=== PATIENT | male | born 1945 | race Caucasian/White ===

== ENCOUNTER 2022-11-11 08:01 | Outpatient (CLI) | payer MEDICARE, SELFPAY ==
[2022-11-11 20:11] LABS: Basophils Absolute Auto 0.1 K/mm3 (0.0-0.1); Basophils Percent Auto 1.1 % (0.2-1.2); Eosinophils Absolute Auto 0.2 K/mm3 (0-0.3); Eosinophils Percent Auto 2.7 % (0-4.4); Hematocrit 51.8 % (42.0-52.0); Hemoglobin 16.1 g/dL (14.0-18.0); Immature Granulocyte Absolute 0.05 K/mm3 (0.00-0.031); Immature Granulocyte Percent A 0.7 % (0-0.5); Lymphocytes Absolute Auto 1.32 K/mm3 (0.9-3.2); Lymphocytes Percent Auto 18.8 % (18.3-44.2); Mean Corpuscular HGB Conc 31.1 g/dl (32-36); Mean Corpuscular Hemoglobin 28.5 pg (26-34); Mean Corpuscular Volume 91.8 fl (80-100); Mean Platelet Volume 11.4 fl (7.4-10.4); Monocytes Absolute Auto 0.7 K/mm3 (0.1-0.6); Monocytes Percent Auto 9.2 % (2.6-8.5); Neutrophils Absolute Auto 4.7 K/mm3 (1.3-6.7); Neutrophils Percent Auto 67.5 % (45.5-73.1); Platelet Count Result 243 k/mm3 (150-375); Red Blood Count 5.64 M/mm3 (4.6-6.20); Red Cell Distribution Width 14.6 % (11.5-14.5)
[2022-11-11 20:47] LABS: Alanine Aminotransferase 16 U/L (6-50); Albumin Level 4.2 g/dL (3.5-5.1); Alkaline Phosphatase 111 U/L (38-126); Anion Gap 6 mmol/L (8-16); Aspartate Amino Transferase 30 U/L (17-59); Bilirubin,Total 0.7 mg/dL (0.2-1.3); Blood Urea Nitrogen 26 mg/dL (9-20); Calcium 9.9 mg/dL (8.4-10.2); Carbon Dioxide 30 mmol/L (22-30); Chloride 105 mmol/L (98-107); Cholesterol 173 mg/dL (0-200); Estimated Glomerular Filt Rate 29; Glucose 86 mg/dL (65-110); HDL Direct 30 mg/dL; Potassium 5.4 mmol/L (3.4-5.0); Sodium 141 mmol/L (137-145); Triglycerides 184 mg/dL (<150)
[2022-11-11 21:01] LABS: LDL Cholesterol Direct 87 mg/dL; Parathyroid Intact 217.1 pg/mL (7.5-53.5)
[2022-11-11 21:15] LABS: Prostate Specific Antigen 1.5 ng/mL (< OR = 4.0)
[2022-11-11 21:21] LABS: Creatinine Urine 67.2 mg/dL; Total Protein Urine Random 163 mg/dL; Ur Ttl Prot Creatinine Ratio 2.43 mg/mg (0-0.20)
[2022-11-11 22:16] LABS: Vitamin D 25 Hydroxy 44.5 ng/mL
== END 2022-11-11 08:02 | disposition home or self-care (01) ==
LOC: ANHGOSHLAB 08:03
PROVIDERS: PCP Internal Medicine; Referring Provider Internal Medicine Nephrology; Visit Provider Nurse Practitioner
DX: I12.9 Hypertensive chronic kidney disease with stage 1 through stage 4 chronic kidney disease, or unspecified chronic kidney disease (principal); N18.4 Chronic kidney disease, stage 4 (severe); Z12.5 Encounter for screening for malignant neoplasm of prostate
CPT/HCPCS: 36415; 80053; 80061; 82306; 82570; 83970; 84153; 84156; 85025; G0103

== ENCOUNTER 2023-05-14 08:22 | Outpatient (CLI) | payer MEDICARE, SELFPAY ==
[2023-05-14 09:33] LABS: Basophils Absolute Auto 0.1 K/mm3 (0.0-0.1); Basophils Percent Auto 0.8 % (0.2-1.2); Eosinophils Absolute Auto 0.2 K/mm3 (0-0.3); Eosinophils Percent Auto 2.3 % (0-4.4); Hematocrit 47.2 % (42.0-52.0); Hemoglobin 15.1 g/dL (14.0-18.0); Immature Granulocyte Absolute 0.04 K/mm3 (0.00-0.031); Immature Granulocyte Percent A 0.5 % (0-0.5); Lymphocytes Absolute Auto 1.06 K/mm3 (0.9-3.2); Lymphocytes Percent Auto 14.4 % (18.3-44.2); Mean Corpuscular Hemoglobin 29.3 pg (26-34); Mean Corpuscular Volume 91.7 fl (80-100); Mean Platelet Volume 10.9 fl (7.4-10.4); Monocytes Absolute Auto 0.6 K/mm3 (0.1-0.6); Monocytes Percent Auto 8.7 % (2.6-8.5); Neutrophils Absolute Auto 5.4 K/mm3 (1.3-6.7); Neutrophils Percent Auto 73.3 % (45.5-73.1); Platelet Count Result 202 k/mm3 (150-375); Red Blood Count 5.15 M/mm3 (4.6-6.20); Red Cell Distribution Width 14.2 % (11.5-14.5); White Blood Count 7.4 K/mm3 (4.5-10.0)
[2023-05-14 09:54] LABS: Alanine Aminotransferase 15 U/L (6-50); Albumin Level 4.2 g/dL (3.5-5.1); Alkaline Phosphatase 82 U/L (38-126); Anion Gap 4 mmol/L (8-16); Aspartate Amino Transferase 23 U/L (17-59); Bilirubin,Total 0.8 mg/dL (0.2-1.3); Blood Urea Nitrogen 25 mg/dL (9-20); Calcium 9.2 mg/dL (8.4-10.2); Carbon Dioxide 31 mmol/L (22-30); Chloride 106 mmol/L (98-107); Cholesterol 122 mg/dL (0-200); Estimated Glomerular Filt Rate 29; Glucose 102 mg/dL (65-110); HDL Direct 28 mg/dL; Phosphorus 3.1 mg/dL (2.5-4.5); Potassium 4.4 mmol/L (3.4-5.0); Sodium 141 mmol/L (137-145); Triglycerides 128 mg/dL (<150)
[2023-05-14 10:04] LABS: LDL Cholesterol Direct 62 mg/dL
[2023-05-14 10:10] LABS: Creatinine Urine 78.4 mg/dL
[2023-05-14 10:15] LABS: Prostate Specific Antigen 1.2 ng/mL (< OR = 4.0)
[2023-05-14 10:26] LABS: Parathyroid Intact 240.1 pg/mL (7.5-53.5)
[2023-05-14 10:32] LABS: Vitamin D 25 Hydroxy 50.6 ng/mL
[2023-05-14 12:16] LABS: Total Protein Urine Random 399 mg/dL; Ur Ttl Prot Creatinine Ratio 5.09 mg/mg (0-0.20)
== END 2023-05-14 08:23 | disposition home or self-care (01) ==
PROVIDERS: PCP Internal Medicine; Referring Provider Nurse Practitioner; Visit Provider Internal Medicine Nephrology
DX: I12.9 Hypertensive chronic kidney disease with stage 1 through stage 4 chronic kidney disease, or unspecified chronic kidney disease (principal); N18.4 Chronic kidney disease, stage 4 (severe); Z12.5 Encounter for screening for malignant neoplasm of prostate
CPT/HCPCS: 36415; 80053; 80061; 80069; 82306; 82570; 83970; 84153; 84156; 85025; G0103

== ENCOUNTER 2023-12-09 08:45 | Outpatient (CLI) | payer MEDICARE, SELFPAY ==
[2023-12-09 18:57] LABS: Hematocrit 49.8 % (42.0-52.0); Hemoglobin 15.1 g/dL (14.0-18.0); Mean Corpuscular HGB Conc 30.3 g/dl (32-36); Mean Corpuscular Hemoglobin 29.3 pg (26-34); Mean Corpuscular Volume 96.7 fl (80-100); Mean Platelet Volume 11.4 fl (7.4-10.4); Platelet Count Result 198 k/mm3 (150-375); Red Blood Count 5.15 M/mm3 (4.6-6.20); Red Cell Distribution Width 14.4 % (11.5-14.5); White Blood Count 7.9 K/mm3 (4.5-10.0)
[2023-12-09 19:11] LABS: Creatinine Urine 55.5 mg/dL; Total Protein Urine Random 100 mg/dL
[2023-12-09 19:23] LABS: Parathyroid Intact 261.9 pg/mL (7.5-53.5)
[2023-12-09 19:24] LABS: Albumin Level 4.2 g/dL (3.5-5.1); Anion Gap 7 mmol/L (8-16); Blood Urea Nitrogen 36 mg/dL (9-20); Calcium 9.6 mg/dL (8.4-10.2); Carbon Dioxide 29 mmol/L (22-30); Chloride 104 mmol/L (98-107); Estimated Glomerular Filt Rate 26; Glucose 105 mg/dL (65-110); Phosphorus 3.3 mg/dL (2.5-4.5); Potassium 4.7 mmol/L (3.4-5.0); Sodium 140 mmol/L (137-145)
== END 2023-12-09 08:46 | disposition home or self-care (01) ==
PROVIDERS: PCP Internal Medicine; Visit Provider Internal Medicine Nephrology
DX: N18.4 Chronic kidney disease, stage 4 (severe) (principal)
CPT/HCPCS: 36415; 80069; 82570; 83970; 84156; 85027

== ENCOUNTER 2024-06-22 08:35 | Outpatient (CLI) | payer MEDICARE, SELFPAY ==
[2024-06-22 15:38] LABS: Hematocrit 50.8 % (42.0-52.0); Hemoglobin 15.6 g/dL (14.0-18.0); Mean Corpuscular HGB Conc 30.7 g/dl (32-36); Mean Corpuscular Hemoglobin 30.1 pg (26-34); Mean Corpuscular Volume 97.9 fl (80-100); Mean Platelet Volume 11.6 fl (7.4-10.4); Platelet Count Result 225 k/mm3 (150-375); Red Blood Count 5.19 M/mm3 (4.6-6.20); White Blood Count 7.6 K/mm3 (4.5-10.0)
[2024-06-22 16:05] LABS: Albumin Level 4.5 g/dL (3.5-5.1); Anion Gap 11 mmol/L (4-12); Blood Urea Nitrogen 37 mg/dL (9-20); Calcium 10.2 mg/dL (8.4-10.2); Carbon Dioxide 28 mmol/L (22-30); Chloride 101 mmol/L (98-107); Estimated Glomerular Filt Rate 24; Glucose 93 mg/dL (65-110); Potassium 4.7 mmol/L (3.4-5.0); Sodium 140 mmol/L (137-145)
[2024-06-22 16:08] LABS: Creatinine Urine 69.5 mg/dL; Total Protein Urine Random 74 mg/dL; Ur Ttl Prot Creatinine Ratio 1.06 mg/mg (0-0.20)
[2024-06-22 16:09] LABS: Vitamin D 25 Hydroxy 41.8 ng/mL
[2024-06-22 16:10] LABS: Alanine Aminotransferase 16 U/L (6-50); Albumin Level 4.4 g/dL (3.5-5.1); Alkaline Phosphatase 74 U/L (38-126); Anion Gap 10 mmol/L (4-12); Aspartate Amino Transferase 48 U/L (17-59); Bilirubin,Total 0.7 mg/dL (0.2-1.3); Blood Urea Nitrogen 36 mg/dL (9-20); Carbon Dioxide 30 mmol/L (22-30); Chloride 100 mmol/L (98-107); Cholesterol 143 mg/dL (0-200); Estimated Glomerular Filt Rate 24; Glucose 88 mg/dL (65-110); HDL Direct 29 mg/dL; Sodium 140 mmol/L (137-145); Triglycerides 188 mg/dL (<150)
[2024-06-22 16:14] LABS: Parathyroid Intact 108.3 pg/mL (14.5-75.2)
[2024-06-22 16:27] LABS: LDL Cholesterol Direct 72 mg/dL
[2024-06-22 16:43] LABS: Prostate Specific Antigen 1.4 ng/mL (< OR = 4.0)
== END 2024-06-22 08:36 | disposition home or self-care (01) ==
PROVIDERS: Nurse Practitioner; PCP Internal Medicine; Visit Provider Internal Medicine Nephrology
DX: Z12.5 Encounter for screening for malignant neoplasm of prostate (principal); E78.5 Hyperlipidemia, unspecified; I12.9 Hypertensive chronic kidney disease with stage 1 through stage 4 chronic kidney disease, or unspecified chronic kidney disease; N18.4 Chronic kidney disease, stage 4 (severe); E21.1 Secondary hyperparathyroidism, not elsewhere classified
CPT/HCPCS: 36415; 80053; 80061; 80069; 82306; 82570; 83970; 84153; 84156; 85027; G0103

== ENCOUNTER 2025-01-16 09:13 | Outpatient (CLI) | payer MEDICARE, SELFPAY ==
--- OUTSIDE RECORDS SUMMARY | 2025-01-16 10:07 | XMS_ITS | Clinical Summary ---
Author Organization [facility] [email or web address] Address [address] [place] [address] Care Team Providers Care Ccie Name Role Phone Flores Amezquita MD Primary Care Provider Source Comments [facility] [email or web address],non-owned Affiliates and Associated Physician Practices is amultiple site organization consisting of ambulatory clinics and hospital sitesin [place], [place], [place] and [place]. This disclosure is being madepursuant to the Care Everywhere program and may not contain all information available regarding this patient. Last updated 18.[facility] [email or web address] Allergies No known active allergies Medications * Be aware that medications may not be up to date on this document. Alwaysverify current medications with the patient. Medication Sig Dispensed Refills Start Date End Date Status atenolol (TENORMIN) 25 MG tablet 25 mg by Per G Tube route once daily. Active temazepam (RESTORIL) 15 MG capsule 15 mg by Per G Tube route nightly as needed. Active chlorhexidine (PERIDEX) 0.12 % solution Swish and spit 15 mL 3 times daily. Active calcium-vitamin D (OYSTER-D) 250-125 MG-UNIT tablet 1 Tab by Per G Tube route 2 times daily with morning and evening meal. Active guaifenesin-dextrom ethorphan (DIABETIC TUSSIN DM) 10-100 MG/5ML syrup 5 mL by Per G Tube route every 8 hours as needed. Active diclofenac sodium (VOLTAREN) 1 % gel Apply to affected area 3 times daily. Active methylphenidate (RITALIN) 10 MG tablet 10 mg by Per G Tube route daily before breakfast. Active levETIRAcetam (KEPPRA) 100 MG/ML oral solution 500 mg by Per G Tube route 2 times daily. Active fentaNYL (DURAGESIC) 25 MCG/HR patch Apply 1 Patch to skin every 3 days. Active bacitracin-polymyxi n b (POLYSPORIN) [id number] UNIT/GM ointment Apply to affected area 3 times daily. Apply to left forearm tid after cleaning and apply dry dressing. Active senna (SENOKOT) 8.6 MG tablet 8.6 mg by Per G Tube route once daily. Active oxyCODONE (OXY-IR) 5 MG capsule 10 mg by Per G Tube route every 4 hours as needed. For pain rating 7-10. Active acetaminophen (TYLENOL) 500 MG tablet 500 mg by Per G Tube route every 4 hours as needed. Maximum allowable Acetaminophen amount = 4 Grams (4000 mg) / 24 hours. Active doxazosin (CARDURA) 1 MG tablet 1 mg by Per G Tube route at bedtime. Active bisACODYL (DULCOLAX) 10 MG suppository Insert 10 mg into the rectum once daily as needed. Active famotidine (PEPCID) 20 MG tablet 20 mg by Per G Tube route once daily. Active Docusate Sodium 50 MG/15ML LIQD 100 mg by Per G Tube route 2 times daily. Active LORazepam (ATIVAN) 0.5 MG tablet 1 Tab by Per NG tube route every 6 hours as needed for Anxiety. 0 0 10/20/2012 Active albuterol (PROVENTIL;VENTOLIN ) (5 MG/ML) 0.5% nebulizer solution Inhale 0.5 mL by mouth 4 times daily as needed for Shortness of Breath or Wheezing. 0 0 10/20/2012 Active ipratropium (ATROVENT) 0.02 % nebulizer solution Inhale 0.5 mg by mouth 4 times daily as needed for Shortness of Breath or Wheezing. 0 0 10/20/2012 Active warfarin (COUMADIN) MISC 10 mg daily at 5 PM. 0 0 10/20/2012 Active mirtazapine (REMERON) 15 MG tablet Take 1 Tab by mouth at bedtime. 0 0 10/20/2012 Active insulin regular human (HUMULIN R;NOVOLIN R) injection Inject 2-15 Units subcutaneously every 6 hours. 0 0 10/20/2012 Active warfarin (COUMADIN) 10 MG tablet Take 1 Tab by mouth every evening. 0 0 10/20/2012 Active Active Problems Problem Noted Date Diagnosed Date SOB (shortness of breath) 09/28/2012 Pulmonary embolism 09/28/2012 Antibiotic long-term use 09/25/2012 Fracture, scapula 09/22/2012 Respiratory failure, acute 09/22/2012 Immunizations Name Administration Dates Next Due INFLUENZA VACCINE 07/10/2012 Social History Tobacco Use Types Packs/Day Years Used Date Smoking Tobacco: Former Cigarettes Q uit: 1997 Alcohol Use Standard Drinks/Week Comments Not Asked 0 (1 standard drink = 0.6 oz pur e alcohol) Sex and Gender Information Value Date Recorded Sex Assigned at Not on file Gender Identity Not on file Sexual Orientation Not on file Last Filed Vital Signs Vital Sign Reading Time Taken Comments Blood Pressure 155/97 05/22/2013 2:03 PM CDT Pulse 98 05/22/2013 2:03 PM CDT Temperature 36.6 C (97.9 F) 01/16/2013 5:21 AM CDT Respiratory Rate 18 01/16/2013 5:21 AM CDT Oxygen Saturation 100% 01/16/2013 5:21 AM CDT Inhaled Oxygen Concentration 21% 10/18/2012 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 Weight 111.6 kg (246 lb) 05/22/2013 2:03 PM CDT Height 188 cm (6' 2 ) 01/12/2013 6:18 AM CDT Body Mass Index 31.58 01/12/2013 6:18 AM CDT Plan of Treatment Health Maintenance Due Date Last Done Comments HEPATITIS C SCREENING 09/25/1963 DTAP/TDAP/TD VACCINES (1 - Tdap) 1966 PNEUMOCOCCAL VACCINE 50+ (1 of 1 - PCV) 1997 ZOSTER VACCINE (1 of 2) 1997 Respiratory Syncytial Virus (RSV) Vaccine Pt: or over 60 yrs (1 - 1-dose 75+ series) 2022 COVID-19 VACCINE (1 - 2023-2 5 season) 2024 DEPRESSION SCREENING 10/10/2024 INFLUENZA VACCINE (Season Ended) 2025 07/10/20 12 HEPATITIS B VACCINE Aged Out No longe r eligible based on patient's age to complete this topic HIB VACCINE Aged Out No longer eligi ble based on patient's age to complete this topic HPV VACCINE Aged Out No longer eligi ble based on patient's age to complete this topic MENINGOCOCCAL (Group B) VACC INE SHARED DECISION-MAKING Aged Out No longer eligibl e based on patient's age to complete this topic MENINGOCOCCAL GROUPS A/C/Y/W VACCINE Aged Out No longer eligible b ased on patient's age to complete this topic Advance Directives Documents on File Type Date Recorded 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 Advance Directives and Livin g Will 05/22/2013 12:00 AM Advance Directives and Livin g Will 01/12/2013 12:00 AM * FULL RESUSCITATION (Latest Code Status on File) Date Activated Date Inactivated Comments 10/20/2012 6:32 PM 11/16/2012 3:26 PM * FULL RESUSCITATION Date Activated Date Inactivated Comments 10/20/2012 9:45 AM 10/20/2012 6:32 PM * FULL RESUSCITATION Date Activated Date Inactivated Comments 09/28/2012 6:13 PM 10/20/2012 9:45 AM * FULL RESUSCITATION Date Activated Date Inactivated Comments 09/22/2012 5:20 PM 09/28/2012 2:15 PM Care Teams Ccie Relationship Specialty [place] [address] [place] [address] PCP - General 10/19/12
[2025-01-16 11:25] LABS: Hematocrit 47.1 % (42.0-52.0); Hemoglobin 14.8 g/dL (14.0-18.0); Mean Corpuscular HGB Conc 31.4 g/dl (32-36); Mean Corpuscular Hemoglobin 30.2 pg (26-34); Mean Corpuscular Volume 96.1 fl (80-100); Mean Platelet Volume 11.1 fl (7.4-10.4); Platelet Count Result 257 k/mm3 (150-375); Red Cell Distribution Width 14.8 % (11.5-14.5); White Blood Count 9.6 K/mm3 (4.5-10.0)
[2025-01-16 13:47] LABS: Albumin Level 4.6 g/dL (3.5-5.1); Anion Gap 16 mmol/L (4-12); Blood Urea Nitrogen 49 mg/dL (9-20); Calcium 10.6 mg/dL (8.4-10.2); Carbon Dioxide 25 mmol/L (22-30); Chloride 101 mmol/L (98-107); Estimated Glomerular Filt Rate 19; Glucose 100 mg/dL (65-110); Phosphorus 3.8 mg/dL (2.5-4.5); Potassium 4.5 mmol/L (3.4-5.0); Sodium 142 mmol/L (137-145)
[2025-01-16 13:48] LABS: Parathyroid Intact 95.4 pg/mL (14.5-75.2)
== END 2025-01-16 09:14 | disposition home or self-care (01) ==
LOC: ANHGOSHLAB 09:15
PROVIDERS: PCP Internal Medicine; Visit Provider Internal Medicine Nephrology
DX: N18.4 Chronic kidney disease, stage 4 (severe) (principal); I12.9 Hypertensive chronic kidney disease with stage 1 through stage 4 chronic kidney disease, or unspecified chronic kidney disease
CPT/HCPCS: 36415; 80069; 83970; 85027

== ENCOUNTER 2025-02-13 09:50 | Outpatient (CLI) | payer MEDICARE, SELFPAY ==
--- OUTSIDE RECORDS SUMMARY | 2025-02-13 10:31 | XMS_ITS | Clinical Summary ---
Author Organization [facility] Address [address] [place] [address] Care Team Providers Care Card Grinder Helper Name Role Phone Flores Amezquita MD Primary Care Provider Source Comments [facility],non-owned Affiliates and Associated Physician Practices is amultiple site organization consisting of ambulatory clinics and hospital sitesin [place], [place], [place] and [place]. This disclosure is being madepursuant to the Care Everywhere program and may not contain all information available regarding this patient. Last updated 18.[facility] Allergies No known active allergies Medications * Be aware that medications may not be up to date on this document. Alwaysverify current medications with the patient. atenolol (TENORMIN) 25 MG tablet 25 mg [...] daily with morning and evening meal. Active guaifenesin-dex tromethorphan (DIABETIC TUSSIN DM) 10-100 MG/5ML syrup 5 [...] Patch to skin every 3 days. Active bacitracin-poly myxin b (POLYSPORIN) [id number] UNIT/GM ointment Apply to affected area 3 [...] hours as needed for Anxiety. 0 0 10/20/19 13 Active albuterol (PROVENTIL;VENT RACHEL) (5 MG/ML) 0.5% nebulizer solution Inhale 0.5 mL by mouth 4 times daily as needed for Shortness of Breath or Wheezing. 0 0 10/20/19 13 Active ipratropium (ATROVENT) 0.02 % nebulizer solution Inhale 0.5 mg by mouth 4 times daily as needed for Shortness of Breath or Wheezing. 0 0 10/20/19 13 Active warfarin (COUMADIN) MISC 10 mg daily at 5 PM. 0 0 10/20/19 13 Active mirtazapine (REMERON) 15 MG tablet Take 1 Tab by mouth at bedtime. 0 0 10/20/19 13 Active insulin regular human (HUMULIN R;NOVOLIN R) injection Inject 2-15 Units subcutaneously every 6 hours. 0 0 10/20/19 13 Active warfarin (COUMADIN) 10 MG tablet Take 1 Tab by mouth every evening. 0 0 10/20/19 13 Active Active Problems Problem Noted Date Diagnosed Date SOB (shortness of breath) 09/28/2012 Pulmonary embolism 09/28/2012 Antibiotic long-term use 09/25/2012 Fracture, scapula 09/22/2012 Respiratory failure, acute 09/22/2012 Immunizations Immunization Administration Dates Next Due INFLUENZA VACCINE 07/10/2012 Social History Tobacco Use Types Packs/Day Years Used Date Smoking Tobacco: Former Cigarettes Q uit: 1997 Alcohol Use Standard Drinks/Week Comments Not Asked 0 (1 standard drink = 0.6 oz pur e alcohol) Sex and Gender Information Value Date Recorded Sex Assigned at Not on file 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
--- OUTSIDE RECORDS SUMMARY | 2025-02-13 10:31 | XMS_ITS | Clinical Summary ---
Author Organization [facility] Address [address] [place] [address] Phone Care Team Providers Care Deputy Director Of Finance Name Role Phone SerenaclayPancho schaffer DO Primary Care Provider [phone] Allergies No known active allergies Medications amLODIPine (NORVASC) 10 MG tablet 1 daily 0 6 Active cholecalciferol (VITAMIN D-3) 2000 units capsule 5 Active metoprolol succinate XL (TOPROL-XL) 50 MG 24 hr tablet 1 daily 0 7 Active ferrous sulfate 325 (65 Fe) MG EC tablet bid 5 Active acetaminophen (TYLENOL) 500 MG tablet 500 mg by Intragastric route every 30 minutes as needed Active hydroCHLOROthia zide (HYDRODIURIL) 25 MG tablet Take 1 tablet (25 mg total) by mouth 1 (one) time each day 90 tablet 3 1 Active lisinopril (PRINIVIL) 20 MG tablet Take 1 tablet (20 mg total) by mouth 1 (one) time each day 90 tablet 3 2 Active pravastatin (PRAVACHOL) 40 MG tablet Take 1 tablet (40 mg total) by mouth 1 (one) time each day 90 tablet 3 2 Active Active Problems Problem Noted Date Diagnosed Date Essential (primary) hypertension 02/08/2018 Hyperlipidemia 02/08/2018 Chronic kidney disease, stage 4 (severe) 016 Pulmonary embolism 09/28/2012 Immunizations Immunization Administration Dates Next Due Influenza TIV (IM) 08/01/2021,07/10/2019 Influenza, Unspecified 08/04/2020,07/10/2012 Pneumococcal Conjugate 08/10/2018 Family History Medical History Relation Comments Malignant neoplastic disease Father Heart disease Mother Kidney disease Neg Hx Relation Status Comments Father Mother Social History Tobacco Use Types Packs/Day Years Used Date Smoking Tobacco: Former Smokeless Tobacco: Never Alcohol Use Standard Drinks/Week Comments Never 0 (1 standard drink = 0.6 oz pur e alcohol) AUDIT-C Answer Date Recorded Frequency of Alcohol Consumption Never 09/10/2019 Average Number of Drinks Not on file 019 Frequency of Binge Drinking Not on file 11/2018 Sex and Gender Information Value Date Recorded Sex Assigned at Not on file Legal Sex Male 8:58 AM MST Gender Identity Not on file Sexual Orientation Not on file Last Filed Vital Signs Vital Sign Reading Time Taken Comments Blood Pressure 108/60 05/12/2022 8:36 AM CDT Pulse 72 05/12/2022 8:36 AM CDT Temperature 36.5 C (97.7 F) 05/12/2022 8:36 AM CDT Respiratory Rate - - Oxygen Saturation - - Inhaled Oxygen Concentration - - Weight 101 kg (222 lb) 05/12/2022 8:36 AM CDT Height 188 cm (6' 2 ) 05/12/2022 8:36 AM CDT Body Mass Index 28.5 05/12/2022 8:36 AM CDT Plan of Treatment Health Maintenance Due Date Last Done Comments Pneumococcal PPSV23/PCV13 65 + Years / Low and Medium Risk (1 of 4 - PCV) 1997 Influenza Vaccine (Season Ended) 2025 08/01/2021, 08/04/2020, 07/10/2019, Additional history exists Insurance [facility] MEDIC[facility] Care Teams Deputy Director Of Finance Relationship Specialty Start Date End Date Pancho Taveras DO [address] [place] [address] PCP - General Internal Medicine 04/25/19
[2025-02-13 14:06] LABS: Anion Gap 10 mmol/L (4-12); Blood Urea Nitrogen 29 mg/dL (9-20); Calcium 10.2 mg/dL (8.4-10.2); Carbon Dioxide 25 mmol/L (22-30); Chloride 107 mmol/L (98-107); Estimated Glomerular Filt Rate 27; Glucose 96 mg/dL (65-110); Potassium 4.5 mmol/L (3.4-5.0); Sodium 142 mmol/L (137-145)
== END 2025-02-13 09:51 | disposition home or self-care (01) ==
LOC: ANHGOSHLAB 09:50
PROVIDERS: PCP Internal Medicine; Visit Provider Internal Medicine Nephrology
DX: N18.4 Chronic kidney disease, stage 4 (severe) (principal)
CPT/HCPCS: 36415; 80048

== ENCOUNTER 2025-07-18 08:16 | Outpatient (CLI) | payer MEDICARE, SELFPAY ==
[2025-07-18 11:15] LABS: Hematocrit 47.3 % (42.0-52.0); Hemoglobin 14.7 g/dL (14.0-18.0); Mean Corpuscular HGB Conc 31.1 g/dl (32-36); Mean Corpuscular Hemoglobin 28.5 pg (26-34); Mean Corpuscular Volume 91.7 fl (80-100); Platelet Count Result 213 k/mm3 (150-375); Red Blood Count 5.16 M/mm3 (4.6-6.20); White Blood Count 7.0 K/mm3 (4.5-10.0)
[2025-07-18 11:19] LABS: Cholesterol 162 mg/dL (0-200); HDL Direct 29 mg/dL; Triglycerides 182 mg/dL (<150)
[2025-07-18 11:24] LABS: Albumin Level 4.1 g/dL (3.5-5.1); Anion Gap 9 mmol/L (4-12); Blood Urea Nitrogen 33 mg/dL (9-20); Calcium 9.9 mg/dL (8.4-10.2); Carbon Dioxide 27 mmol/L (22-30); Chloride 105 mmol/L (98-107); Estimated Glomerular Filt Rate 30; Glucose 100 mg/dL (65-110); Potassium 4.8 mmol/L (3.4-5.0); Sodium 141 mmol/L (137-145)
[2025-07-18 11:31] LABS: Parathyroid Intact 114.2 pg/mL (14.5-75.2)
[2025-07-18 11:33] LABS: Total Protein Urine Random 93 mg/dL; Ur Ttl Prot Creatinine Ratio 1.92 mg/mg (0-0.20)
== END 2025-07-18 08:17 | disposition home or self-care (01) ==
PROVIDERS: Visit Provider Internal Medicine Nephrology
DX: E78.2 Mixed hyperlipidemia (principal)
CPT/HCPCS: 36415; 80061; 80069; 82570; 83970; 84156; 85027

== ENCOUNTER 2025-08-07 09:11 | Outpatient (CLI) | payer MEDICARE, SELFPAY ==
--- OUTSIDE RECORDS SUMMARY | 2025-08-07 09:58 | XMS_ITS | Clinical Summary ---
Author Organization [facility] Address [address] [place] [address] Care Team Providers Care Card Hanger Name Role Phone Flores Amezquita MD Primary Care Provider Source Comments [facility],non-owned Affiliates and Associated Physician Practices is amultiple site organization consisting of ambulatory clinics and hospital sitesin [place], [place], [place] and [place]. This disclosure is being madepursuant to the Care Everywhere program and may not contain all information available regarding this patient. Last updated 18.[facility] Allergies No known active allergies Medications * [...] 3 days. 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 Gender Identity Not on file Sexual Orientation [...] Oxygen Concentration 21% 10/18/2012 1 0:00 AM STEEPLE JACK Weight 111.6 kg (246 lb) 05/22/2013 2:03 PM CDT Height 188 cm (6' 2) 01/12/2013 6:18 AM CDT Body Mass Index 31.58 01/12/2013 6:18 AM CDT Plan of Treatment Health Maintenance Due Date Last Done Comments HEPATITIS C SCREENING 09/25/1963 DTAP/TDAP/TD VACCINES (1 - Tdap) 1966 PNEUMOCOCCAL VACCINE 50+ (1 of 1 - PCV) 1997 ZOSTER VACCINE (1 of 2) 1997 Respiratory Syncytial Virus (RSV) Vaccine Pt: or over 60 yrs (1 - 1-dose 75+ series) 2022 DEPRESSION SCREENING 10/10/2024 COVID-19 VACCINE (1 - 2023-2 5 season) 2025 INFLUENZA VACCINE (#1) 2025 07/10/2012 HEPATITIS B VACCINE Aged Out No longe [...] patient's age to complete this topic Insurance [employer] Advance Directives Documents on File Type Date Recorded 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
--- OUTSIDE RECORDS SUMMARY | 2025-08-07 09:58 | XMS_ITS | Clinical Summary ---
Author Organization [facility] Address [address] [place] [id number] Phone Care Team Providers Care Capacity Analyst Name Role Phone SerenaclayPancho schaffer DO Primary Care Provider [phone] Allergies No known active allergies Medications amLODIPine [...] 8:36 AM CDT Height 188 cm (6' 2) 05/12/2022 8:36 AM CDT Body Mass Index 28.5 05/12/2022 8:36 AM CDT Plan of Treatment Health Maintenance Due Date Last Done Comments Pneumococcal PPSV23/PCV13 65 + Years / Low and Medium Risk (1 of 2 - PCV) 1997 Influenza Vaccine (#1) 2025 , 08/04/2020, 07/10/2019, Additional history exists Insurance [facility] MEDICARE ADVANTAGE Care Teams Capacity Analyst Relationship Specialty Start Date End Date Pancho Taveras DO [address] [place] [address] PCP - General Internal Medicine 04/25/19
[2025-08-07 13:23] LABS: Anion Gap 11 mmol/L (4-12); Blood Urea Nitrogen 35 mg/dL (9-20); Calcium 9.6 mg/dL (8.4-10.2); Carbon Dioxide 23 mmol/L (22-30); Chloride 105 mmol/L (98-107); Estimated Glomerular Filt Rate 21; Glucose 89 mg/dL (65-110); Potassium 4.7 mmol/L (3.4-5.0); Sodium 139 mmol/L (137-145)
== END 2025-08-07 09:12 | disposition home or self-care (01) ==
LOC: ANHGOSHLAB 09:12
PROVIDERS: PCP Internal Medicine; Visit Provider Internal Medicine Nephrology
DX: N18.4 Chronic kidney disease, stage 4 (severe) (principal)
CPT/HCPCS: 36415; 80048